=== PATIENT | male | born 1935 | race Caucasian/White ===

== ENCOUNTER 2016-09-06 14:21 | Outpatient (CLI) | payer MEDICARE, BC | END 2016-09-06 14:22 | disposition home or self-care (01) | DX: R91.8 Other nonspecific abnormal finding of lung field (principal) ==

== ENCOUNTER 2016-09-14 12:59 | Outpatient (CLI) | payer MEDICARE, OTHER ==
[2016-09-14] MEDS ORDERED: IOPAMIDOL-300 100 ML VIAL IVP ONE (14:35)
== END 2016-09-14 13:00 | disposition home or self-care (01) ==
DX: J98.11 Atelectasis (principal)
CPT/HCPCS: 36415; 71260; 80048; Q9967

== ENCOUNTER 2022-03-11 13:29 | Emergency (ER) | payer MEDICARE, BC ==
[2022-03-11 14:20] LABS: BASOPHILS # (AUTO) 0.1 10^3/uL (0.0-0.1); BASOPHILS % (AUTO) 0.6 %; EOSINOPHILS # (AUTO) 0.3 10^3/uL (0.0-0.7); EOSINOPHILS % (AUTO) 3.4 %; HCT - HEMATOCRIT 37.6 % (42.0-52.0); HGB - HEMOGLOBIN 12.2 g/dL (14.0-18.0); LYMPHOCYTES % (AUTO) 23.6 %; MEAN CORPUSCULAR HGB CONC 32.4 g/dL (32.0-36.0); MEAN CORPUSCULAR VOLUME 95.4 fL (80.0-94.0); MEAN PLATELET VOLUME 9.9 fL (7.4-11.4); MONOCYTES # (AUTO) 0.7 10^3/uL (0.0-1.0); MONOCYTES % (AUTO) 8.1 %; NEUTROPHILS # (AUTO) 5.5 10^3/uL (1.5-6.6); NEUTROPHILS % (AUTO) 63.7 %; PLT - PLATELET COUNT 256 10^3/uL (130-450); RED BLOOD COUNT 3.94 10^6/uL (4.70-6.10); WHITE BLOOD COUNT 8.6 x10^3/uL (4.8-10.8)
[2022-03-11 14:34] LABS: ALBUMIN 3.5 g/dL (3.2-5.5); ALBUMIN/GLOBULIN RATIO 1.3 (1.0-2.2); BILIRUBIN,TOTAL 0.6 mg/dL (0.2-1.0); CALCIUM 9.5 mg/dL (8.5-10.3); CREATININE 1.1 mg/dL (0.6-1.2); POTASSIUM 3.6 mmol/L (3.5-5.0); TOTAL PROTEIN 6.3 g/dL (6.7-8.2)
[2022-03-11] MEDS ORDERED: AZITHROMYCIN 250 MG TABLET PO STA (15:30)
[2022-03-11] MEDS ORDERED: LOPERAMIDE 2 MG CAPSULE PO STA (15:30)
--- NOTE | 2022-03-11 15:32 | ED Physician Documentation ---
PD HPI ABD PAIN - Stated complaint Stated Complaint: DIARRHEA - Chief complaint Chief Complaint: Abd Pain - History obtained from History obtained from: Patient - Additional information Additional information: 86-year-old gentleman presents for evaluation of diarrhea. He says for the last 5 days he has had explosive gas and diarrhea. He has not tried anything for it. A couple episodes of incontinence. Mild right-sided abdominal pain at night. No sick contacts. No recent travel. No clear inciting food events. He did take antibiotics about a month and a half ago just for 1 day before some dental work. Last colonoscopy was 2 years ago per him. Review of Systems Constitutional: denies: Fever Throat: reports: Reviewed and negative Cardiac: reports: Reviewed and negative Respiratory: reports: Reviewed and negative PD PAST MEDICAL HISTORY - Present Medications Home Medications: Ambulatory Orders Medication Instructions Recorded Confirmed Azithromycin [Zithromax] 1 tab PO DAILY #4 tab 03/11/22 Loperamide [Imodium] 2 mg PO QID PRN #10 cap 03/11/22 - Allergies Allergies/Adverse Reactions: Allergies Allergy/AdvReac Type Severity Reaction Status Date / Time No Known Drug Allergies Allergy Verified 03/11/22 13:49 PD ED PE NORMAL - Vitals Vital signs reviewed: Yes - General General: Alert and oriented X 3, No acute distress - HEENT HEENT: PERRL, EOMI - Abdomen Abdomen: Soft, Non tender, Other (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 Nontender. No surgical signs.) - Neuro Neuro: Alert and oriented X 3, Normal speech Results - Vitals Vitals: Vital Signs - 24 hr 03/11/22 13:45 Temperature 37.5 C Heart Rate 66 Respiratory 18 Rate Blood Pressure 137/101 H O2 Saturation 100 Oxygen O2 Source Room air - Labs Labs: Laboratory Tests 03/11/22 03/11/22 14:14 14:14 WBC 8.6 RBC 3.94 L Hgb 12.2 L Hct 37.6 L MCV 95.4 H MCH 31.0 MCHC 32.4 RDW 14.0 Plt Count 256 MPV 9.9 Neut # (Auto) 5.5 Lymph # (Auto) 2.0 [place] # (Auto) 0.7 Eos # (Auto) 0.3 Baso # (Auto) 0.1 Absolute Nucleated RBC 0.00 Nucleated RBC % 0.0 Sodium 144 Potassium 3.6 Chloride 108 Carbon Dioxide 27 Anion Gap 9.0 BUN 24 H Creatinine 1.1 Estimated GFR (MDRD) 63 L Glucose 102 H Calcium 9.5 Total Bilirubin 0.6 AST 17 ALT 16 Alkaline Phosphatase 61 Total Protein 6.3 L Albumin 3.5 Globulin 2.8 Albumin/Globulin Ratio 1.3 Lipase 26 PD MEDICAL DECISION MAKING - ED course ED course: 86-year-old gentleman with diarrhea, benign exam, and unremarkable labs. Departure - Departure Disposition: Home, Self Care Clinical Impression: Diarrhea Condition: Good Record reviewed to determine appropriate education?: Yes Instructions: ED Gastroenteritis Report Pend Prescriptions: Loperamide [Imodium] 2 mg PO QID PRN #10 cap PRN Reason: Diarrhea Azithromycin [Zithromax] 1 tab PO DAILY #4 tab Comments: We are sending your stool for culture and C. difficile check. We will call with pertinent positives. Return for new or worsening symptoms. Follow-up with your doctor on Tuesday if not better.
[2022-03-11 16:16] VITALS: BP 130/66
== END 2022-03-11 16:15 | disposition home or self-care (01) ==
LOC: ED 13:29
DX: R19.7 Diarrhea, unspecified (principal); D17.1 Benign lipomatous neoplasm of skin and subcutaneous tissue of trunk
CPT/HCPCS: 36415; 80053; 83690; 85025; 99283; A9270